=== PATIENT | male | born 1940 | race Caucasian/White ===

== ENCOUNTER → 2020-09-02 | Outpatient (CLI) | payer MEDICARE, OTHER ==
--- NOTE | 2020-09-02 12:15 | Diagnostic Imaging Report ---
PROCEDURE: CT abdomen and pelvis without contrast. TECHNIQUE: Multiple contiguous axial images were obtained through the abdomen and pelvis without the use of intravenous contrast. Auto Exposure Controls were utilized during the CT exam to meet ALARA standards for radiation dose reduction. INDICATION: Prostate carcinoma and cancer of lung Unenhanced images of the liver, gallbladder and pancreas are unremarkable. There is no evidence of adrenal gland lesion. Calcification within the spleen are likely related to previous granulomatous exposure. Unenhanced images of the kidneys are unremarkable without evidence of hydronephrosis or calculus. No ureteric stone. The prostate is generally enlarged with dystrophic calcifications along the dorsal aspect. There is no evidence of bladder stone. Probable subacute to chronic fractures are present in the right superior and inferior pubic rami. There is lumbar spondylosis without evidence of focal lytic or sclerotic bone mass. There is mild aortoiliac atherosclerotic calcification. No pathologic adenopathy is detected. There are subcentimeter lymph nodes along the iliac chains, greater on the left. IMPRESSION: No evidence of acute abnormality or metastatic disease. Subcentimeter iliac chain lymph nodes are present, greater on the left with mild prostatomegaly. Dictated by: Dictated on workstation # [id number]
--- NOTE | 2020-09-02 15:28 | Diagnostic Imaging Report ---
INDICATION: Prostate carcinoma. TECHNIQUE: Patient was administered 26.6 mCi technetium 99m MDP intravenously and whole body imaging was performed after a three-hour delay. COMPARISON: No prior studies are available for comparison. FINDINGS: Normal uptake of activity by the axial and appendicular skeleton is noted. There is uptake by both kidneys with excretion into the urinary bladder. Postop changes of left knee replacement are noted. There are some degenerative changes involving the medial compartment of the right knee. No suspicious focus of tracer accumulation is seen to suggest osseous metastatic disease. IMPRESSION: No scintigraphic evidence of osseous metastatic disease. Dictated by: Dictated on workstation # [id number]
== END ==
LOC: CARD 11:10
PROVIDERS: ATTEND Urology
DX: C61 Malignant neoplasm of prostate (principal)
CPT/HCPCS: 74176; 78306; A9503

== ENCOUNTER 2020-10-15 05:43 | Outpatient (CLI) | payer MEDICARE, OTHER ==
[~2020-10-15] VITALS: Ht 180.3 cm; Wt 109.1 kg
[2020-10-15] MEDS ORDERED: SIMV40TA25 PO (12:24)
[2020-10-15] MEDS ORDERED: ASCO100024 PO (12:24)
[2020-10-15] MEDS ORDERED: FINA5TAB PO (12:24)
[2020-10-15] MEDS ORDERED: ALLO300T2 PO (12:24)
[2020-10-15] MEDS ORDERED: HYDR-3820 PO (12:24)
[2020-10-15] MEDS ORDERED: IRBE300T17 PO (12:24)
[2020-10-15] MEDS ORDERED: AMLO-250 PO (12:24)
== END 2020-10-15 12:38 | disposition home or self-care (01) ==
LOC: PREOP 05:43
PROVIDERS: ATTEND Urology
DX: Z01.818 Encounter for other preprocedural examination (principal)

== ENCOUNTER 2020-10-20 06:53 | Day surgery (SDC) | payer MEDICARE, OTHER ==
[~2020-10-20] VITALS: Ht 180.3 cm; Wt 109.1 kg
[2020-10-20] VITALS (8 sets, daily range): BP systolic 96–182; BP diastolic 61–128
[~2020-10-20 06:53] MED LIST: ALLO300T2 PO; AMLO-250 PO; ASCO100024 PO; FINA5TAB PO; HYDR-3820 PO; IRBE300T17 PO; SIMV40TA25 PO
[2020-10-20] MEDS ORDERED: cefTRIAXone FOR IV USE 1,000 MG in WATER (STERILE) FOR INJECTION 10 ML IV ONE (07:15)
[2020-10-20] MEDS ORDERED: LACTATED RINGERS 1,000 ML IV PRN (07:15)
[2020-10-20] MEDS ORDERED: SEVOFLURANE (ULTANE) 15 ML INHAL SOLN ONE (07:30)
[2020-10-20] MEDS ORDERED: proPOfol 200 MG/20 ML (DIPRIVAN) VIAL IV ONE (07:30)
[2020-10-20] MEDS ORDERED: ONDANSETRON 4 MG/2 ML (SDV) Z0FRAN ONE (07:30)
[2020-10-20] MEDS ORDERED: LIDOCAINE PF 2% 5 ML (XYLOCAINE) VIAL ONE (07:30)
[2020-10-20] MEDS ORDERED: fentaNYL INJ 100 MCG/2 ML AMP ONE (07:31)
--- NOTE | 2020-10-20 07:38 | Progress Note-Pre Operative ---
Pre-Operative Progress Note H&P Reviewed The H&P was reviewed, patient examined and no changes noted. Date Seen by Provider: Oct 20, 2020 Time Seen by Provider: 07:38 Date H&P Reviewed: Oct 20, 2020 Time H&P Reviewed: 07:38 Pre-Operative Diagnosis: CA PROSTATE RUDOLPH MUHAMMAD MD Oct 20, 2020 07:38
--- NOTE | 2020-10-20 07:39 | Progress Note-Post Operative ---
Post-Operative Progess Note Surgeon (s)/[employer] Consultant (s) Surgeon RUDOLPH MUHAMMAD MD [employer] Consultant: NONE Pre-Operative Diagnosis CA PROSTATE Post-Operative Diagnosis SAME Procedure & Operative Findings Date of Procedure 10/20/20 Procedure Performed/Findings PLACEMENT OF SPACE OAR Anesthesia Type GENERAL Estimated Blood Loss Estimated blood loss (mL): NONE Specimens/Packing Specimens Removed NONE Packing: NONE RUDOLPH MUHAMMAD MD Oct 20, 2020 07:39
--- NOTE | 2020-10-20 07:42 | Discharge Inst-Urology ---
Discharge Inst-Urology Reconcile Patient Problems Problems Reviewed?: Yes Final Diagnosis CA PROSTATE Patient Instructions/Follow Up Plan/Assessment/Instructions Please make appointment to been seen in office by me in 2 weeks. Rest and Increase oral fluids for 48 hours and then as needed. In 48 hours, may resume ASA if no bleeding Diet as tolerated. If questions or concerns contact your physician Or seek help at emergency department. RUDOLPH MUHAMMAD MD Oct 20, 2020 07:42
[2020-10-20] MEDS ORDERED: CIPR-225 PO (08:05)
[2020-10-20] MEDS ORDERED: TRM50T PO (08:05)
[2020-10-20] MEDS ORDERED: morphine INJ 10 MG/ML 1ML (SYR OR VIAL) IVP ONE (08:45)
[2020-10-20] MEDS ORDERED: ONDANSETRON 4 MG/2 ML (SDV) Z0FRAN IVP PRN (08:45)
[2020-10-20] MEDS ORDERED: DOXY100C PO (09:06)
--- NOTE | 2020-10-20 09:16 | Anesthesia-General Post-Op ---
General Patient Condition Mental Status/LOC: Same as Preop Cardiovascular: Satisfactory Nausea/Vomiting: Absent Respiratory: Satisfactory Pain: Controlled Complications: Absent Post Op Complications Complications None Follow Up Care/Instructions Patient Instructions None needed. Anesthesia/Patient Condition Patient Condition Patient is doing well, no complaints, stable vital signs, no apparent adverse anesthesia problems. He was doing great so he was discharged from PACU to [facility] [place]. FISH MUNIZ DO Oct 20, 2020 09:16
== END 2020-10-20 10:10 | disposition home or self-care (01) ==
LOC: SDC 06:53
PROVIDERS: ATTEND Urology
DX: C61 Malignant neoplasm of prostate (principal); I10 Essential (primary) hypertension; J43.9 Emphysema, unspecified; G47.33 Obstructive sleep apnea (adult) (pediatric); M10.9 Gout, unspecified; E78.5 Hyperlipidemia, unspecified; M19.90 Unspecified osteoarthritis, unspecified site; E66.9 Obesity, unspecified; Z68.33 Body mass index [BMI] 33.0-33.9, adult; Z79.899 Other long term (current) drug therapy; Z85.118 Personal history of other malignant neoplasm of bronchus and lung
CPT/HCPCS: 55874; 87081; C1889

== ENCOUNTER → 2020-12-29 | Outpatient (RCR) | payer MEDICARE, OTHER ==
[~2020-12-29] MED LIST changes: +CIPR-225 PO; +DOXY100C PO; +TRM50T PO
== END | disposition home or self-care (01) ==
LOC: ONC 09-30 10:43
PROVIDERS: ATTEND Radiology Radiation Oncology
DX: C61 Malignant neoplasm of prostate (principal); I10 Essential (primary) hypertension; Z85.118 Personal history of other malignant neoplasm of bronchus and lung; Z87.891 Personal history of nicotine dependence
CPT/HCPCS: 77300; 77301; 77334; 77336; 77338; 77385; 99204

== ENCOUNTER 2021-03-12 09:15 | Outpatient (RCR) | payer MEDICARE, OTHER | END 2021-03-30 | disposition home or self-care (01) | LOC: ONC 09:15 | PROVIDERS: ATTEND Radiology Radiation Oncology | DX: Z51.0 Encounter for antineoplastic radiation therapy (principal); C61 Malignant neoplasm of prostate; I10 Essential (primary) hypertension; E78.00 Pure hypercholesterolemia, unspecified; Z85.118 Personal history of other malignant neoplasm of bronchus and lung; Z87.891 Personal history of nicotine dependence; Z85.3 Personal history of malignant neoplasm of breast | CPT/HCPCS: 77385; G0463; 77336; 99213 ==

== ENCOUNTER 2022-07-16 13:08 | Outpatient (RCR) | payer MEDICARE, OTHER | END 2022-08-03 | disposition home or self-care (01) | LOC: ONC 13:08 | PROVIDERS: ATTEND Radiology Radiation Oncology | DX: C61 Malignant neoplasm of prostate (principal); I10 Essential (primary) hypertension; E78.00 Pure hypercholesterolemia, unspecified; Z85.118 Personal history of other malignant neoplasm of bronchus and lung; Z87.891 Personal history of nicotine dependence | CPT/HCPCS: 36415; 84153 ==

== ENCOUNTER → 2023-01-25 | Emergency (ER) | payer MEDICARE, OTHER ==
[~2023-01-25] VITALS: Ht 180.3 cm; Wt 104.7 kg
[~2023-01-25] MED LIST changes: +ACHD5005 PO; +LIDOCAINE/EPI 2% 1:100,00 (XYLOCAINE) 20 ML VIAL INJ ONE; +RX-OXYCODONE/APAP 5-325 MG #4 TAB PK PO PRN; +TRANEXAMIC ACID 100 MG/ML 10 ML INJECTION IR ONE; +fentaNYL INJ 100 MCG/2 ML AMP IVP ONE; +hydrALAZINE (APESOLINE) 20 MG/ML VIAL IV ONE; +morphine INJ 4 MG/ML 1 ML (VIAL/SYRINGE) IV STA
[2023-01-25 19:46] LABS: HEMOGLOBIN 13.4 g/dL (13.3-17.7); MEAN CORPUSCULAR HEMOGLOBIN 32 pg (25-34)
[2023-01-25 19:47] LABS: BASOPHILS % (AUTO) 0 % (0-10); EOSINOPHILS # (AUTO) 0.1 10^3/uL (0.0-0.3); EOSINOPHILS % (AUTO) 1 % (0-10); HEMATOCRIT 40 % (40-54); LYMPHOCYTES # (AUTO) 1.1 X 10^3 (1.0-4.0); LYMPHOCYTES % (AUTO) 11 % (12-44); MEAN CORPUSCULAR HGB CONC 34 g/dL (32-36); MEAN CORPUSCULAR VOLUME 93 fL (80-99); MEAN PLATELET VOLUME 11.5 fL (9.0-12.2); MONOCYTES # (AUTO) 0.8 X 10^3 (0.0-1.0); MONOCYTES % (AUTO) 8 % (0-12); NEUTROPHILS % (AUTO) 80 % (42-75); PLATELET COUNT 204 10^3/uL (130-400); POTASSIUM 4.4 MMOL/L (3.6-5.0)
[2023-01-25 19:48] LABS: CALCIUM 9.9 MG/DL (8.5-10.1); CREATININE SERUM 0.88 MG/DL (0.60-1.30); INR 0.9 (0.8-1.4); PROTHROMBIN TIME PATIENT 12.8 SEC (12.2-14.7)
[2023-01-25 21:00] VITALS: BP 158/57
--- NOTE | 2023-01-25 21:21 | ED General ---
General Chief Complaint: Post OP Complications/Pain Stated Complaint: POST OP ORAL BLEEDING Nursing Triage Note: Patient arrival per POV ambulating to ED 1 reporting 2 teeth pulled and bleeding began from sockets at 1500. The patient has had tissues placed in mouth to absorb. Source of Information: Patient, Family Exam Limitations: No Limitations History of Present Illness Date Seen by Provider: Jan 25, 2023 Time Seen by Provider: 18:55 Initial Comments This 82-year-old gentleman presents to the emergency room with excessive postoperative bleeding after dental extraction. Bleeding was controlled when he returned home from the surgery about 1500. However, he then developed significant bleeding that was not controlled with direct pressure at home. He presents to the emergency room with continued active bleeding. He notes pain and his blood pressure is significantly elevated during triage. Patient takes no blood thinning medications. His dentist is in [place], [place]. Allergies and Home Medications Allergies Coded Allergies: No Known Drug Allergies (Unverified , 10/15/20) Patient Home Medication List Home Medication List Reviewed: Yes Allopurinol (Allopurinol) 300 Mg Tablet, 300 MG PO DAILY, (Reported) Entered as Reported by: SUNI DIAZ on 10/15/20 1224 Amlodipine Besylate (Amlodipine Besylate) 5 Mg Tablet, 5 MG PO DAILY, (Reported) Entered as Reported by: SUNI DIAZ on 10/15/20 1224 Ascorbic Acid (Vitamin C) 1,000 Mg Tablet, 1,000 MG PO DAILY, (Reported) Entered as Reported by: SUNI DIAZ on 10/15/20 1224 Doxycycline Hyclate (Vibramycin) 100 Mg Capsule, 100 MG PO DAILY Prescribed by: BRIONNA MEJÍA on 10/20/20 0906 Finasteride (Proscar) 5 Mg Tablet, 5 MG PO DAILY, (Reported) Entered as Reported by: SUNI DIAZ on 10/15/20 1224 Hydrocodone/Acetaminophen (Hydrocodone-Acetamin 10-325 mg) 1 Each Tablet, 1 EACH PO BID, (Reported) Entered as Reported by: SUNI DIAZ on 10/15/20 1224 Hydrocodone/Acetaminophen (Hydrocodone-Acetamin 5-325 mg) 5 Mg-325 Mg Tablet, 1 TAB PO Q4H PRN for PAIN-MODERATE (5-7) Prescribed by: TIFFANIE MCINTOSH on 01/26/23 1006 Irbesartan (Irbesartan) 300 Mg Tablet, 300 MG PO DAILY, (Reported) Entered as Reported by: SUNI DIAZ on 10/15/20 1224 Simvastatin (Simvastatin) 40 Mg Tablet, 40 MG PO DAILY, (Reported) Entered as Reported by: SUNI DIAZ on 10/15/20 1224 Tramadol HCl (Tramadol HCl) 50 Mg Tablet, 50-100 MG PO Q4H Prescribed by: BRIONNA MEJÍA on 10/20/20 0805 Review of Systems Review of Systems Constitutional: no symptoms reported EENTM: see HPI Respiratory: no symptoms reported Cardiovascular: see HPI Gastrointestinal: no symptoms reported Genitourinary: no symptoms reported Musculoskeletal: no symptoms reported Skin: no symptoms reported Psychiatric/Neurological: No Symptoms Reported Hematologic/Lymphatic: See HPI Immunological/Allergic: no symptoms reported Past Fwlvpcp-Fpsove-Fjhnhf Hx Patient Social History Tobacco Use?: No Smoking Status: Unknown if Ever Smoked Smokeless Tobacco Frequency: Unknown if Ever Used Substance use?: Unable to obtain Alcohol Use?: Unable to obtain Immunizations Up To Date First/Initial COVID19 Vaccinat: done Second COVID19 Vaccination [place]: done Third COVID19 Vaccination Date: done Seasonal Allergies Seasonal Allergies: No Past Medical History Surgery/Hospitalization HX: HTN, Hyperlipidemia, Gout, BPH, Lung surgery Surgeries: Yes (left lobectomy, left TKR) Appendectomy Respiratory: Yes (hx lung cancer, hx lobectomy) Sleep Apnea, COPD, Emphysema Currently Using CPAP: No Currently Using BIPAP: No Cardiac: Yes High Cholesterol, Hypertension Neurological: No Genitourinary: No (prostate ca) Gastrointestinal: No Musculoskeletal: Yes Arthritis, Gout Endocrine: No HEENT: No (partial) Cancer: Yes Prostate, Lung Did You Recieve Any Treatments: Yes What Type of Treatment Did You: Surgical Intervention Psychosocial: No Integumentary: No Blood Disorders: No Physical Exam Vital Signs Vital Signs - First Documented 01/25/23 18:49 Temp 36.4 Pulse 66 Resp 18 B/P (MAP) 142/107 (119) Pulse Ox 94 O2 Delivery Room Air Capillary Refill : Height, Weight, BMI Height: '" Weight: lbs. oz. kg; 32.00 BMI Method: General Appearance: WD/WN, Mild Distress HEENT: PERRL/EOMI, Normal ENT Inspection, Other (There are 2 extraction sites, one on the upper left and 1 on the lower left. The lower left extraction site is rapidly bleeding. Sutures appear intact.) Neck: Normal Inspection Respiratory: Lungs Clear, Normal Breath Sounds, No Accessory Muscle Use Cardiovascular: Regular Rate, Rhythm, No Edema, No Murmur Neurologic/Psychiatric: Alert, Oriented x3, No Motor/Sensory Deficits Skin: Normal Color, Warm/Dry Progress/Results/Core Measures Suspected Sepsis SIRS Temperature: Pulse: 66 Respiratory Rate: 18 Laboratory Tests 01/25/23 19:14: White Blood Count 10.0 Blood Pressure 142 /107 Mean: 119 Laboratory Tests 01/25/23 19:14: Creatinine 0.88, INR Comment 0.9, Platelet Count 204 Results/Orders Lab Results Laboratory Tests Test 01/25/23 19:14 Range/Units White Blood Count 10.0 4.3-11.0 10^3/uL Red Blood Count 4.25 L 4.30-5.52 10^6/uL Hemoglobin 13.4 13.3-17.7 g/dL Hematocrit 40 40-54 % Mean Corpuscular Volume 93 80-99 fL Mean Corpuscular Hemoglobin 32 25-34 pg Mean Corpuscular Hemoglobin Concent 34 32-36 g/dL Red Cell Distribution Width 13.4 10.0-14.5 % Platelet Count 204 130-400 10^3/uL Mean Platelet Volume 11.5 9.0-12.2 fL Neutrophils (%) (Auto) 80 H 42-75 % Lymphocytes (%) (Auto) 11 L 12-44 % Monocytes (%) (Auto) 8 0-12 % Eosinophils (%) (Auto) 1 0-10 % Basophils (%) (Auto) 0 0-10 % Neutrophils # (Auto) 8.0 H 1.8-7.8 X 10^3 Lymphocytes # (Auto) 1.1 1.0-4.0 X 10^3 Monocytes # (Auto) 0.8 0.0-1.0 X 10^3 Eosinophils # (Auto) 0.1 0.0-0.3 10^3/uL Basophils # (Auto) 0.0 0.0-0.1 10^3/uL Prothrombin Time 12.8 12.2-14.7 SEC INR Comment 0.9 0.8-1.4 Activated Partial Thromboplast Time 32 24-35 SEC Sodium Level 140 135-145 MMOL/L Potassium Level 4.4 3.6-5.0 MMOL/L Chloride Level 103 98-107 MMOL/L Carbon Dioxide Level 26 21-32 MMOL/L Anion Gap 11 5-14 MMOL/L Blood Urea Nitrogen 24 H 7-18 MG/DL Creatinine 0.88 0.60-1.30 MG/DL Estimat Glomerular Filtration Rate 86 BUN/Creatinine Ratio 27 Glucose Level 101 70-105 MG/DL Calcium Level 9.9 8.5-10.1 MG/DL My Orders Orders - TIFFANIE MARKS MD Basic Metabolic Panel (01/25/23 19:14) Cbc With Automated Diff (01/25/23 19:14) Protime With Inr (01/25/23 19:14) Partial Thromboplastin Time (01/25/23 19:14) Lidocaine/Epi 2% 1:100,000 (Xylocaine/Ep (01/25/23 22:15) Tranexamic Acid Injection (Cyklokapron I (01/25/23 22:15) Fentanyl Inj (Sublimaze Injection) (01/25/23 22:15) Hydralazine Injection (Apresoline Inject (01/25/23 22:15) Rx-Oxycodone/Apap 5-325 Mg (Rx-Percocet (01/25/23 22:15) Morphine Injection (Morphine Injection (01/25/23 22:18) Medications Given in ED Vital Signs/I&O 01/25/23 01/25/23 01/25/23 01/25/23 18:49 19:21 20:15 21:00 Temp 36.4 36.2 36.2 36.2 Pulse 66 65 Resp 18 18 B/P (MAP) 142/107 (119) 158/57 Pulse Ox 94 92 O2 Delivery Room Air Room Air Capillary Refill : Blood Pressure Mean: 119 Progress Note : Progress Note Patient was seen and examined promptly after nursing triage. Patient had a significant active bleed. I personally applied direct pressure with gauze until nursing staff could fill my verbal orders for medications. I provided continuous bedside care until hemostasis was achieved. Once medications were available, the wound was sprayed with lidocaine with epinephrine and tranexamic acid. Gauze soaked with both medications was applied with significant and direct pressure by me until hemostasis was achieved. Approximately 1 mL of lidocaine with epinephrine was also injected in the gum tissue at the operative site. Patient was noted to have significant hypertension despite taking his usual medications at home. He was also having significant pain. Blood pressure and pain were treated initially with fentanyl and then with morphine. Although pain control did help his blood pressure, reduction was not satisfactory. Hydralazine 5 mg IV was administered to further aid in blood pressure control. Blood pressure control was felt important for achieving hemostasis. A second dose of morphine was given for rebound pain and a take-home pack of oxycodone was administered. Patient demonstrated good hemostasis for a significant length of time prior to discharge. He had no active bleeding at the time of discharge. Discharge instructions were provided in writing as the EMR was not available at the time of discharge due to unscheduled EMR downtime. A hydrocodone prescription was later sent electronically. Care of this patient was delayed and prolonged secondary to unscheduled EMR downtime. Documentation of the chart was also delayed due to EMR downtime and malfunctioning of the remote EMR access after shift. Labs were reviewed and interpreted by me. CBC demonstrated a normal hemoglobin at baseline with normal platelets. Coagulation panel was normal. There were no significant abnormalities on the BMP. Discharge instructions were reviewed with patient and at 2158. Departure Impression Primary Impression: Postoperative hemorrhage Qualified Codes: K91.840 - Postprocedural hemorrhage of a digestive system organ or structure following a digestive system procedure Additional Impressions: Postoperative pain Hypertensive urgency Disposition: 01 HOME, SELF-CARE Condition: Improved Departure-Patient Inst. Decision time for Depature: 21:58 Referrals: SHREYAS PHAN MD (PCP/Family) Primary Care Physician Scripts Hydrocodone/Acetaminophen (Hydrocodone-Acetamin 5-325 mg) 5 Mg-325 Mg Tablet 1 TAB PO Q4H PRN for PAIN-MODERATE (5-7), #8 TAB Prov: TIFFANIE MARKS MD 01/26/23 Copy Copies To 1: SHREYAS PHAN MD, JOSHUA T MD Jan 25, 2023 21:21
== END ==
LOC: ER FS 18:38 → EDUNIT# 18:38
DX: R05.9 Cough, unspecified (principal)
CPT/HCPCS: 36415; 80048; 85025; 85610; 85730

== ENCOUNTER 2023-02-07 08:26 | Outpatient (RCR) | payer MEDICARE, OTHER ==
[~2023-02-07 08:26] MED LIST changes: -LIDOCAINE/EPI 2% 1:100,00 (XYLOCAINE) 20 ML VIAL INJ ONE; -RX-OXYCODONE/APAP 5-325 MG #4 TAB PK PO PRN; -TRANEXAMIC ACID 100 MG/ML 10 ML INJECTION IR ONE; -fentaNYL INJ 100 MCG/2 ML AMP IVP ONE; -hydrALAZINE (APESOLINE) 20 MG/ML VIAL IV ONE; -morphine INJ 4 MG/ML 1 ML (VIAL/SYRINGE) IV STA
== END 2023-03-03 | disposition home or self-care (01) ==
LOC: ONC 08:26
PROVIDERS: ATTEND Radiology Radiation Oncology
DX: C61 Malignant neoplasm of prostate (principal); I10 Essential (primary) hypertension; E78.00 Pure hypercholesterolemia, unspecified; Z85.118 Personal history of other malignant neoplasm of bronchus and lung
CPT/HCPCS: 36415; 84153